=== PATIENT | female | born 1930 | race Caucasian/White ===

== ENCOUNTER 2016-09-12 10:13 | Outpatient (CLI) | payer MEDICARE ==
[2016-09-12 11:36] LABS: ALT (SGPT) 17 U/L (8-55); AST (SGOT) 23 U/L (5-34); Albumin 4.3 g/dL (3.4-4.8); Alkaline Phosphatase 95 U/L (40-150); Anion Gap 14 mmol/L (10-20); BUN (Urea Nitrogen) 12 mg/dL (9.8-20.1); Calc. Creatinine Clearance 0 mL/min (70-130); Calcium 9.2 mg/dL (7.8-10.44); Carbon Dioxide 30 mmol/L (23-31); Cardiac Risk 2.2 (Less than 4.5); Chloride 99 mmol/L (98-107); Cholesterol 134 mg/dl (< 200 Desired); Estimated GFR-MDRD 78; Globulin 2.7 g/dL (2.4-3.5); Glucose 94 mg/dL (83-110); HDL Cholesterol 61 mg/dL (>60 Neg Risk); LDL Cholesterol, Calculated 62 mg/dL; Sodium 139 mmol/L (136-145); Triglycerides 54 mg/dL (Less than 150)
[2016-09-12 12:13] LABS: #Basophils 0.1 thou/uL (0.0-0.2); #Eosinphils 0.1 thou/uL (0.0-0.7); #Lymphocytes 1.7 thou/uL (1.20-3.40); #Monocytes 0.7 thou/uL (0.11-0.59); #Neutrophils 4.9 thou/uL (1.40-6.50); %Basophils 1.5 % (0.0-1.0); %Eosinophils 1.3 % (0.0-10.0); %Lymphocytes 22.8 % (21.0-51.0); %Monocytes 9.5 % (0.0-10.0); %Neutrophils 64.8 % (42.0-75.0); Hemoglobin 14.3 g/dL (12.0-16.0); Mean Corpuscular HGB CONC 33.9 g/dL (32.0-36.0); Mean Corpuscular Hemoglobin 28.3 pg (27.0-31.0); Mean Corpuscular Volume 83.6 fl (81.0-99.0); Mean Platelet Volume 9.7 fL (7.4-10.4); Platelet Count 134 thou/uL (130-400); RBC Distribution Width 15.3 % (11.5-14.5); Red Blood Cell (RBC) Count 5.06 mill/uL (4.20-5.40); White Blood Cell (WBC) Count 7.5 thou/uL (4.8-10.8)
== END 2016-09-12 10:14 ==
LOC: HPCALD 10:13
PROVIDERS: ATTEND Family Medicine
DX: E78.2 Mixed hyperlipidemia (principal); I10 Essential (primary) hypertension
CPT/HCPCS: 36415; 80053; 80061; 84443; 85025

== ENCOUNTER 2017-10-18 08:56 | Outpatient (CLI) | payer MEDICARE ==
--- NOTE | 2017-10-18 15:35 | ULT ---
ABDOMINAL ULTRASOUND: 10/18/2017 TECHNIQUE: Ultrasonography of the abdomen was performed. The patient does not image exceptionally well, so the sensitivity of the exam is somewhat low. FINDINGS: The liver measures 11.1 cm in oblique sagittal length, which is rather low. No masses or dilated ashly ts are seen, however. The gallbladder contains no signs of stones or wall thickening. The common bi le duct is upper normal to slightly enlarged, at 8 mm in width. No reason for this is shown. The pa ncreas is seen poorly, but the visible areas are unremarkable. The patient's spleen is normal in siz e, measuring 10 cm in length. The aorta and inferior vena cava are unremarkable. The kidneys are seen very poorly. The right kidney is 10.2 cm long and the left is 8.6 cm. There is certainly no sign obstruction, but masses would be easily missed in either. IMPRESSION: Low sensitivity exam, showing mild enlargement of the common bile duct, without signs of intrahepatic ductal dilation. Given the history of an elevated bilirubin, it might be prudent to consider a CT o f the abdomen on this patient, with intravenous contrast, if possible, for further evaluation. CODE T POS: HOME
== END 2017-10-18 08:57 | disposition home or self-care (01) ==
LOC: BURULT 08:56
PROVIDERS: ATTEND Family Medicine
DX: D69.6 Thrombocytopenia, unspecified (principal); E80.7 Disorder of bilirubin metabolism, unspecified; K83.8 Other specified diseases of biliary tract
CPT/HCPCS: 76700

== ENCOUNTER 2017-10-26 09:03 | Outpatient (CLI) | payer MEDICARE ==
[~2017-10-26 09:03] MED LIST: Iopamidol 370 76% 100 ML VIAL ONE
--- NOTE | 2017-10-26 21:59 | CT ---
CT ABDOMEN WITH CONTRAST: 10/26/[address] of the abdomen was done after giving oral and IV contrast. Axial slices were acquired, then thin reconstructions were done through the upper abdomen to investigate a recent finding of an enlar ged common bile duct on ultrasound. The common bile duct is indeed large, actually measuring up to 10 mm in width on these images. It can be seen for its entire extent from liver to the second part of the duodenum. There are no signs of a n extrinsic mass. the pancreas is quite atrophic. No cause for the dilation is apparent unless there was something within the duct itself causing obstruction. Nevertheless, there is no sign of intrahepa tic ductal dilation. The liver and spleen were unremarkable in appearance. A small hiatal hernia is seen. No adrenal mass was present. There is no renal obstruction. An ovoid cyst measuring 4.3 x 2.5 cm is seen in the upper part of the right kidney and a small 1 cm exophytic cyst is suggested in the lower portion of the le ft kidney. It is slightly opaque indicating that there might be some hemorrhage in it. Its significan ce is thought to be quite low. No intra-abdominal free air or free fluid was present. The visible bow el was nondistended and showed no inflammatory change. IMPRESSION: Dilated common bile duct from liver through second part of the duodenum. It was seen quite well with no signs of extrinsic compression to explain the findings. Given virtually no intrahepatic dilation e ither, one could wonder about its significance. POS: HOME
== END 2017-10-26 09:04 | disposition home or self-care (01) ==
LOC: BURCT 09:03
PROVIDERS: ATTEND Family Medicine
DX: K83.8 Other specified diseases of biliary tract (principal)
CPT/HCPCS: 36415; 74160; 82565; A4216